=== PATIENT | female | born 1965 | race Caucasian/White ===

== ENCOUNTER → 2019-02-11 | Outpatient (CLI) | payer MEDICARE, OTHER, SELFPAY ==
[2019-02-11 09:44] LABS: INR 0.86 (0.85-1.15); PARTIAL THROMBOPLASTIN TIME 25.5 SEC (26.3-35.5); PROTHROMBIN TIME 9.1 SEC (9.6-11.6)
--- NOTE | 2019-02-11 10:30 | NUR ---
U/S GD LT THYROID FNA PROCEDURE PERFORMED BY DR Candido BRADY. DR TRUNER PRESENT FOR SPECIMEN VERIFICATION. PUNCTURE SITE LT NECK AND PATIENT TOLERATED PROCEDURE WELL. SPECIMEN X 5 COLLECTED AND SENT TO LAB. END OF PROCEDURE AT 0955. BIOPSY NEEDLE REMOVED AND DRESSING APPLIED. NO BLEEDING NOTED. DISCHARGE INSTRUCTIONS GIVEN TO PATIENT AND VERBALIZED UNDERSTANDING. DISCHARGED VIA AMBULATION AT 1030 AAO X3 WITH NO C/O PAIN.
== END ==
LOC: RAH 07:57
PROVIDERS: ATTEND Internal Medicine Endocrinology, Diabetes & Metabolism
DX: E04.1 Nontoxic single thyroid nodule (principal)
CPT/HCPCS: 10005; 36415; 76942; 85610; 85730; 88172; 88173